=== PATIENT | female | born 1980 | race Hispanic/Latino ===

== ENCOUNTER 2017-07-28 07:17 | Emergency (ER) | payer BC ==
[2017-07-28] MEDS ORDERED: SODIUM CHLORIDE 0.9% 1000ML 1,000 ML IV ONE ×2 (08:01→09:24)
[2017-07-28] MEDS ORDERED: ONDANSETRON HCL 4 MG/2 ML VIAL ONE (08:01)
[2017-07-28 08:08] LABS: BASOPHILS % (AUTO) 1.2 % (0.0-5.0); EOSINOPHILS % (AUTO) 0.3 % (0.0-8.0); HEMATOCRIT 41.6 % (36-48); LYMPHOCYTES % (AUTO) 21.9 % (21.0-51.0); MEAN CORPUSCULAR HEMOGLOBIN 29.9 pg (27.0-33.0); MEAN CORPUSCULAR VOLUME 85.5 fL (79-99); MONOCYTES % (AUTO) 3.3 % (3.0-13.0); NEUTROPHILS % (AUTO) 73.3 % (40.0-77.0); PLATELET COUNT (AUTO) 183 K/uL (130-400); RED BLOOD CELL COUNT(AUTO) 4.87 MIL/uL (4.00-5.50); RED CELL DISTRIBUTION WIDTH 12.9 % (11.0-15.5); WHITE BLOOD COUNT (AUTO) 11.7 K/uL (4.8-10.8)
[2017-07-28 08:31] LABS: APPEARANCE,URINE Clear (CLEAR); BILIRUBIN,URINE Negative (NEGATIVE); COLOR,URINE Yellow (YELLOW); GLUCOSE, URINE (UA) >=1000 mg/dL (NEGATIVE); HCG,QUAL RESULT NEGATIVE (NEGATIVE); KETONES,URINE 40 mg/dL (NEGATIVE); LEUKOCYTE ESTERASE ,URINE Negative (NEGATIVE); NITRATE,URINE Negative (NEGATIVE); OCCULT BLOOD,URINE Nonhemolyzed Trace (NEGATIVE); PROTEIN,URINE Negative (NEGATIVE)
[2017-07-28 08:37] LABS: ALBUMIN 3.5 g/dL (3.5-5.0); BILIRUBIN,TOTAL 0.6 mg/dL (0.2-1.0); CREATININE 0.7 mg/dL (0.5-1.5); POTASSIUM 3.8 mmol/L (3.5-5.1); TOTAL PROTEIN, SERUM 7.3 g/dL (6.0-8.3)
[2017-07-28] MEDS ORDERED: FAMOTIDINE 20MG TAB 20 MG TAB ONE (08:39)
[2017-07-28 08:40] LABS: BACTERIA,URINE Few /HPF (None Seen)
[2017-07-28] MEDS ORDERED: INSULIN HUMULIN R 100 UNIT/ML 3ML ONE (09:25)
== END 2017-07-28 11:23 | disposition home or self-care (01) ==
LOC: EDH 07:17
DX: E86.0 Dehydration (principal); E11.65 Type 2 diabetes mellitus with hyperglycemia; M54.5 Low back pain; R30.0 Dysuria; R06.02 Shortness of breath; Z90.49 Acquired absence of other specified parts of digestive tract; Z98.51 Tubal ligation status; Z98.890 Other specified postprocedural states
CPT/HCPCS: 36415; 80053; 81001; 81025; 82948; 83690; 85025; 93005; 96361; 96374; 96375; 99285; J1815; J2405; J7030 ×2

== ENCOUNTER 2018-09-14 12:57 | Emergency (ER) | payer BC, OTHER | END 2018-09-14 13:44 | disposition home or self-care (01) | LOC: EDH 12:57 | DX: J10.1 Influenza due to other identified influenza virus with other respiratory manifestations (principal); E11.9 Type 2 diabetes mellitus without complications; Z98.51 Tubal ligation status; Z90.49 Acquired absence of other specified parts of digestive tract; Z98.890 Other specified postprocedural states ==

== ENCOUNTER 2020-06-01 18:34 | Emergency (ER) | payer OTHER ==
[2020-06-01 19:01] LABS: APPEARANCE,URINE SL CLOUDY (CLEAR); BILIRUBIN,URINE NEGATIVE (NEGATIVE); COLOR,URINE YELLOW (YELLOW); GLUCOSE, URINE (UA) >=1000 mg/dL (NEGATIVE); KETONES,URINE NEGATIVE (NEGATIVE); LEUKOCYTE ESTERASE ,URINE NEGATIVE (NEGATIVE); NITRATE,URINE POSITIVE (NEGATIVE); OCCULT BLOOD,URINE MODERATE (NEGATIVE); PROTEIN,URINE TRACE mg/dL (NEGATIVE); UROBILINOGEN,URINE 0.2 mg/dL (0.2-1.0)
[2020-06-01 19:04] LABS: HCG,QUAL RESULT NEGATIVE (NEGATIVE)
[2020-06-01 19:13] LABS: BACTERIA,URINE Moderate /HPF (None Seen); MUCUS,URINE Few LPF (None Seen); RBC,URINE 26-50 /HPF (0-1); SQUAMOUS EPITHELIAL CELL,UR Few /HPF (0-2)
[2020-06-01] MEDS ORDERED: KETOROLAC TROMETHAMINE 30MG/ML ONE ×2 (19:20→19:23)
[2020-06-01] MEDS ORDERED: SODIUM CHLORIDE 0.9% 1000ML 1,000 ML IV ONE (19:20)
[2020-06-01] MEDS ORDERED: PHENAZOPYRIDINE HCL 200 MG TABLET ONE (19:23)
[2020-06-01] MEDS ORDERED: CEFTRIAXONE SODIUM 1 GM ONE (19:24)
[2020-06-01 19:44] LABS: BASOPHILS % (AUTO) 0.3 % (0.0-5.0); EOSINOPHILS % (AUTO) 0.4 % (0.0-8.0); HEMATOCRIT 43.1 % (36-48); LYMPHOCYTES % (AUTO) 22.5 % (21.0-51.0); MEAN CORPUSCULAR HEMOGLOBIN 29.9 pg (27.0-33.0); MEAN CORPUSCULAR HGB CONC 33.9 g/dL (32.0-36.0); MEAN CORPUSCULAR VOLUME 88.3 fL (79-99); MONOCYTES % (AUTO) 6.7 % (3.0-13.0); NEUTROPHILS % (AUTO) 69.5 % (40.0-77.0); PLATELET COUNT (AUTO) 233 K/uL (130-400); RED BLOOD CELL COUNT(AUTO) 4.88 MIL/uL (4.00-5.50); WHITE BLOOD COUNT (AUTO) 12.1 K/uL (4.8-10.8)
[2020-06-01 19:48] LABS: CREATININE 0.9 mg/dL (0.5-1.5); POTASSIUM 3.6 mmol/L (3.5-5.1)
[2020-06-01 19:52] LABS: ALBUMIN 3.2 g/dL (3.5-5.0); BILIRUBIN,TOTAL 0.3 mg/dL (0.2-1.0); TOTAL PROTEIN, SERUM 7.2 g/dL (6.0-8.3)
== END 2020-06-01 20:31 | disposition home or self-care (01) ==
LOC: EDH 18:34
DX: N39.0 Urinary tract infection, site not specified (principal); E11.9 Type 2 diabetes mellitus without complications
CPT/HCPCS: 36415; 74176; 80053; 81001; 81025; 83690; 85025; 87077; 87088; 87186; 96361; 96374; 96375; 99284; J0696; J1885 ×2; J7030

== ENCOUNTER 2020-07-06 02:06 | Inpatient (IN) | payer OTHER ==
[~2020-07-06] VITALS: Ht 160 cm; Wt 113.7 kg
[2020-07-06 02:42] LABS: BASOPHILS % (AUTO) 0.3 % (0.0-5.0); HEMATOCRIT 41.4 % (36-48); LYMPHOCYTES % (AUTO) 17.7 % (21.0-51.0); MEAN CORPUSCULAR HEMOGLOBIN 29.1 pg (27.0-33.0); MONOCYTES % (AUTO) 5.7 % (3.0-13.0); NEUTROPHILS % (AUTO) 75.7 % (40.0-77.0); PLATELET COUNT (AUTO) 154 K/uL (130-400); RED BLOOD CELL COUNT(AUTO) 4.99 MIL/uL (4.00-5.50); WHITE BLOOD COUNT (AUTO) 3.3 K/uL (4.8-10.8)
[2020-07-06] MEDS ORDERED: METOCLOPRAMIDE 10 MG/2 ML VIAL ONE (02:48)
[2020-07-06] MEDS ORDERED: CEFTRIAXONE SODIUM 1 GM ONE ×2 (02:49→15:31)
[2020-07-06] MEDS ORDERED: DEXAMETHASONE SOD PHOSPHATE 10MG/ML 1ML VIAL ONE (02:49)
[2020-07-06] MEDS ORDERED: AZITHROMYCIN 500MG+NS 250ML 250 ML IV ONE (02:49)
[2020-07-06] MEDS ORDERED: ONDANSETRON HCL 4 MG/2 ML VIAL ONE (02:49)
[2020-07-06 02:51] LABS: ABG BASE EXCESS -3.8 mmol/L (-2.0-3.0); ABG HCO3 19.1 mmol/L (21.0-28.0); ABG OXYGEN SATURATION 87.8 % (95.0-99.0); ABG PCO2 29 mmHg (32-45)
[2020-07-06 02:54] LABS: INR 0.93 (0.85-1.15)
[2020-07-06 02:56] LABS: PARTIAL THROMBOPLASTIN TIME 30.2 SEC (26.3-35.5)
[2020-07-06 02:59] LABS: CREATININE 0.7 mg/dL (0.5-1.5); POTASSIUM 3.3 mmol/L (3.5-5.1)
[2020-07-06 03:04] LABS: ALBUMIN 2.6 g/dL (3.5-5.0); BILIRUBIN,TOTAL 0.4 mg/dL (0.2-1.0); TOTAL PROTEIN, SERUM 7.4 g/dL (6.0-8.3)
[2020-07-06] MEDS ORDERED: IBUPROFEN 600 MG TABLET ONE (03:42)
[2020-07-06] MEDS ORDERED: LIDOCAINE HCL-MPF 1% 2ML VIAL IV PRN (04:15)
[2020-07-06] MEDS ORDERED: ALBUTEROL INHALER 90MCG/INH IH PRN (04:15)
[2020-07-06] MEDS ORDERED: GLUCAGON 1MG KIT 1 MG ML IM PRN (04:15)
[2020-07-06] MEDS ORDERED: POTASSIUM CHLORIDE 20 MEQ ERTAB PO PRN (04:15)
[2020-07-06] MEDS ORDERED: POTASSIUM CHLORIDE 20MEQ/100ML 100 ML IV PRN (04:15)
[2020-07-06] MEDS: AZITHROMYCIN 500MG+NS 250ML 250 ML IV SCH (04:15)
[2020-07-06] MEDS ORDERED: POTASSIUM CHLORIDE 10% ELIXIR 20 MEQ/15 ML UDCUP PO PRN (04:15)
[2020-07-06] MEDS ORDERED: ERGOCALCIFEROL (VITAMIN D2) 50,000 UNIT CAPSULE PO ONE ×2 (04:15→09:15)
[2020-07-06] MEDS ORDERED: DEXTROSE 50%-WATER 50 ML DISP.SYRIN IV PRN (04:15)
[2020-07-06] MEDS ORDERED: ACETAMINOPHEN 325 MG TAB PO PRN ×2 (05:00)
[2020-07-06] MEDS ORDERED: ONDANSETRON HCL 4 MG/2 ML VIAL IV PRN (05:00)
[2020-07-06] MEDS: FAMOTIDINE/PF 20 MG/2 ML VIAL IV SCH (09:00)
[2020-07-06] MEDS: ACETYLCYSTEINE 600 MG CAPSULE PO SCH ×2 (09:00→21:00)
[2020-07-06] MEDS ORDERED: ASCORBIC ACID 500 MG TAB PO SCH (09:00)
[2020-07-06] MEDS: ZINC SULFATE 220 CAPSULE PO SCH (09:00)
[2020-07-06] MEDS: DEXAMETHASONE SOD PHOSPHATE 4 MG/ML 1ML VIAL IVP SCH (09:00)
[2020-07-06] MEDS ORDERED: ASCORBIC ACID 500 MG TAB ONE (09:07)
[2020-07-06] MEDS ORDERED: ZINC SULFATE 220 CAPSULE ONE (09:07)
[2020-07-06] MEDS ORDERED: ACETYLCYSTEINE 600 MG CAPSULE ONE (09:07)
[2020-07-06] MEDS ORDERED: FAMOTIDINE/PF 20 MG/2 ML VIAL IV ONE (09:08)
[2020-07-06] MEDS: CEFTRIAXONE SODIUM 1 GM IVP SCH (16:15)
[2020-07-06] MEDS ORDERED: ENOXAPARIN SODIUM 60 MG/0.6 ML SQ SCH (21:00)
[2020-07-07] MEDS ORDERED: ONDANSETRON HCL 4 MG/2 ML VIAL ONE (00:11)
[2020-07-07] MEDS ORDERED: ACETAMINOPHEN 325 MG TAB ONE (00:18)
[2020-07-07] MEDS ORDERED: ENOXAPARIN SODIUM 60 MG/0.6 ML SQ ONE ×2 (01:00→07:50)
[2020-07-07] MEDS ORDERED: AZITHROMYCIN 500MG+NS 250ML 250 ML IV ONE (03:07)
[2020-07-07] MEDS ORDERED: CEFTRIAXONE SODIUM 1 GM ONE (03:07)
[2020-07-07] MEDS: AZITHROMYCIN 500MG+NS 250ML 250 ML IV SCH (04:15)
[2020-07-07] MEDS: CEFTRIAXONE SODIUM 1 GM IVP SCH ×3 (04:15→17:34)
[2020-07-07 04:29] LABS: BASOPHILS % (AUTO) 0.2 % (0.0-5.0); HEMATOCRIT 40.3 % (36-48); LYMPHOCYTES % (AUTO) 14.9 % (21.0-51.0); MEAN CORPUSCULAR HEMOGLOBIN 28.6 pg (27.0-33.0); MEAN CORPUSCULAR HGB CONC 34.2 g/dL (32.0-36.0); MEAN CORPUSCULAR VOLUME 83.4 fL (79-99); MONOCYTES % (AUTO) 5.4 % (3.0-13.0); NEUTROPHILS % (AUTO) 78.9 % (40.0-77.0); PLATELET COUNT (AUTO) 168 K/uL (130-400); RED BLOOD CELL COUNT(AUTO) 4.83 MIL/uL (4.00-5.50); WHITE BLOOD COUNT (AUTO) 5.2 K/uL (4.8-10.8)
[2020-07-07 04:53] LABS: ALANINE AMINOTRANSFERASE 19 U/L (12-78); ALBUMIN 2.2 g/dL (3.5-5.0); ASPARTATE AMINOTRANSFERASE 24 U/L (10-37); BILIRUBIN,TOTAL 0.3 mg/dL (0.2-1.0); CARBON DIOXIDE 19 mmol/L (21-32); CHLORIDE 100 mmol/L (101-111); CREATININE 0.7 mg/dL (0.5-1.5); GLOMERULAR FILTR. RATE CALC 100 mL/min (>60); GLUCOSE,RANDOM 194 mg/dL (70-105); LACTATE DEHYDROGENASE 352 U/L (81-234); POTASSIUM 3.2 mmol/L (3.5-5.1); SODIUM SERUM 137 mmol/L (136-145); TOTAL PROTEIN, SERUM 6.9 g/dL (6.0-8.3); UREA NITROGEN, BLOOD 15 mg/dL (7-18)
[2020-07-07] MEDS ORDERED: DEXAMETHASONE SOD PHOSPHATE 10MG/ML 1ML VIAL ONE (07:50)
[2020-07-07] MEDS ORDERED: ASCORBIC ACID 500 MG TAB ONE (07:51)
[2020-07-07] MEDS ORDERED: POTASSIUM CHLORIDE 20 MEQ ERTAB PO ONE (07:51)
[2020-07-07] MEDS ORDERED: ACETYLCYSTEINE 600 MG CAPSULE ONE (07:52)
[2020-07-07] MEDS ORDERED: ZINC SULFATE 220 CAPSULE ONE (07:52)
[2020-07-07] MEDS ORDERED: FAMOTIDINE/PF 20 MG/2 ML VIAL IV ONE (07:52)
[2020-07-07] MEDS: ACETYLCYSTEINE 600 MG CAPSULE PO SCH ×2 (09:00→22:17)
[2020-07-07] MEDS: ASCORBIC ACID 500 MG TAB PO SCH (09:00)
[2020-07-07] MEDS ORDERED: ZINC SULFATE 220 CAPSULE PO SCH (09:00)
[2020-07-07] MEDS: FAMOTIDINE/PF 20 MG/2 ML VIAL IV SCH ×2 (09:00→22:12)
[2020-07-07] MEDS: DEXAMETHASONE SOD PHOSPHATE 4 MG/ML 1ML VIAL IVP SCH (09:00)
[2020-07-07] MEDS: ZINC SULFATE 220 CAPSULE PO SCH (09:00)
[2020-07-07 09:30] VITALS: BP 107/69
[2020-07-07] MEDS: ONDANSETRON HCL 4 MG/2 ML VIAL IVP PRN ×2 (10:41→22:19)
[2020-07-07 12:00] VITALS: BP 126/77
[2020-07-07] MEDS ORDERED: REMDESIVIR (EUA) 520 200 MG in SODIUM CHLORIDE 0.9% 250 ML IV ONE (14:00)
[2020-07-07] MEDS ORDERED: COMPOUND IV REFRIGERATED 1 EACH IVSOLN MISC PRN (14:00)
[2020-07-07] MEDS ORDERED: ENOXAPARIN SODIUM 120 MG/0.8ML SQ ONE ×2 (14:15→18:40)
[2020-07-07 16:00] VITALS: BP 115/73
[2020-07-07 19:40] VITALS: BP 110/63
[2020-07-07 23:34] VITALS: BP 103/64
[2020-07-08 03:54] VITALS: BP 120/70
[2020-07-08 04:15] LABS: ABG BASE EXCESS -4.3 mmol/L (-2.0-3.0); ABG HCO3 18.4 mmol/L (21.0-28.0); ABG OXYGEN SATURATION 99.7 % (95.0-99.0); ABG PCO2 29 mmHg (32-45)
[2020-07-08] MEDS: AZITHROMYCIN 500MG+NS 250ML 250 ML IV SCH (04:15)
[2020-07-08 05:01] LABS: BASOPHILS % (AUTO) 0.3 % (0.0-5.0); LYMPHOCYTES % (AUTO) 26.3 % (21.0-51.0); MEAN CORPUSCULAR HEMOGLOBIN 28.6 pg (27.0-33.0); MEAN CORPUSCULAR HGB CONC 33.8 g/dL (32.0-36.0); MEAN CORPUSCULAR VOLUME 84.6 fL (79-99); MONOCYTES % (AUTO) 9.8 % (3.0-13.0); NEUTROPHILS % (AUTO) 62.9 % (40.0-77.0); PLATELET COUNT (AUTO) 195 K/uL (130-400); RED BLOOD CELL COUNT(AUTO) 4.61 MIL/uL (4.00-5.50); RED CELL DISTRIBUTION WIDTH 12.1 % (11.0-15.5)
[2020-07-08] MEDS: CEFTRIAXONE SODIUM 1 GM IVP SCH ×2 (05:07→16:19)
[2020-07-08 05:13] LABS: BILIRUBIN,TOTAL 0.3 mg/dL (0.2-1.0); CREATININE 0.7 mg/dL (0.5-1.5); CRP QUANTITATIVE 111.9 mg/L (0.00-9.0); POTASSIUM 3.8 mmol/L (3.5-5.1); TOTAL PROTEIN, SERUM 6.7 g/dL (6.0-8.3)
[2020-07-08] MEDS ORDERED: PHARMACY COMMUNICATION MISC SCH (06:00)
[2020-07-08 07:00] VITALS: BP 90/50
[2020-07-08 07:42] LABS: LYMPHOCYTES % (MANUAL) 22 % (22-44); MONOCYTES % (MANUAL) 8 % (2-9); SEGMENTED NEUTROPHILS % 70 % (40-70)
[2020-07-08 07:43] LABS: MAN.DIFF COMMENT-IMPRESSION MANUAL DIFFERENTIAL; PLATELET MORPHOLOGY COMMENT ADEQUATE
[2020-07-08] MEDS: FAMOTIDINE/PF 20 MG/2 ML VIAL IV SCH (08:14)
[2020-07-08] MEDS: ACETYLCYSTEINE 600 MG CAPSULE PO SCH ×2 (08:23→21:04)
[2020-07-08] MEDS: ASCORBIC ACID 500 MG TAB PO SCH (08:23)
[2020-07-08] MEDS ORDERED: NON-FORMULARY MEDICATION 1 EACH PO SCH (09:00)
[2020-07-08] MEDS: DEXAMETHASONE SOD PHOSPHATE 4 MG/ML 1ML VIAL IVP SCH (09:46)
[2020-07-08] MEDS: ZINC SULFATE 220 CAPSULE PO SCH (09:47)
[2020-07-08 11:00] VITALS: BP 118/78
[2020-07-08] MEDS: REMDESIVIR (EUA) 520 100 MG in SODIUM CHLORIDE 0.9% 250 ML IV SCH (14:00)
[2020-07-08 19:54] VITALS: BP 121/70
[2020-07-08] MEDS: FAMOTIDINE 20MG TAB 20 MG TAB PO SCH (21:05)
[2020-07-08] MEDS: ENOXAPARIN SODIUM 60 MG/0.6 ML SQ SCH (21:06)
[2020-07-08 23:44] VITALS: BP 131/73
[2020-07-09 03:23] VITALS: BP 98/51
[2020-07-09 05:08] LABS: BASOPHILS % (AUTO) 0.3 % (0.0-5.0); HEMATOCRIT 38.7 % (36-48); LYMPHOCYTES % (AUTO) 25.1 % (21.0-51.0); MEAN CORPUSCULAR HEMOGLOBIN 28.7 pg (27.0-33.0); MEAN CORPUSCULAR HGB CONC 33.9 g/dL (32.0-36.0); MEAN CORPUSCULAR VOLUME 84.9 fL (79-99); MONOCYTES % (AUTO) 8.8 % (3.0-13.0); NEUTROPHILS % (AUTO) 64.8 % (40.0-77.0); PLATELET COUNT (AUTO) 212 K/uL (130-400); RED BLOOD CELL COUNT(AUTO) 4.56 MIL/uL (4.00-5.50); RED CELL DISTRIBUTION WIDTH 12.1 % (11.0-15.5)
[2020-07-09 05:16] LABS: ALBUMIN 2.1 g/dL (3.5-5.0); BILIRUBIN,TOTAL 0.3 mg/dL (0.2-1.0); CREATININE 0.6 mg/dL (0.5-1.5); CRP QUANTITATIVE 53.2 mg/L (0.00-9.0); POTASSIUM 3.8 mmol/L (3.5-5.1); TOTAL PROTEIN, SERUM 6.5 g/dL (6.0-8.3)
[2020-07-09 08:51] VITALS: BP 100/57
[2020-07-09 08:53] VITALS: BP 136/78
[2020-07-09] MEDS: ZINC SULFATE 220 CAPSULE PO SCH (09:45)
[2020-07-09] MEDS: ASCORBIC ACID 500 MG TAB PO SCH (09:45)
[2020-07-09] MEDS: CEFTRIAXONE SODIUM 1 GM IVP SCH (09:45)
[2020-07-09] MEDS: FAMOTIDINE 20MG TAB 20 MG TAB PO SCH ×2 (09:45→21:52)
[2020-07-09] MEDS: DEXAMETHASONE SOD PHOSPHATE 4 MG/ML 1ML VIAL IVP SCH (09:45)
[2020-07-09] MEDS: ENOXAPARIN SODIUM 60 MG/0.6 ML SQ SCH ×2 (09:46→21:56)
[2020-07-09] MEDS: INSULIN HUMULIN R 100 UNIT/ML 3ML SQ SCH ×2 (09:49→13:08)
[2020-07-09 12:30] VITALS: BP 109/70
[2020-07-09] MEDS: REMDESIVIR (EUA) 520 100 MG in SODIUM CHLORIDE 0.9% 250 ML IV SCH (13:57)
[2020-07-09 16:22] VITALS: BP 118/65
[2020-07-09 20:00] VITALS: BP 103/59
[2020-07-09] MEDS: INSULIN GLARGINE 100 UNITS/ML 10 ML VIAL SQ SCH (22:00)
[2020-07-10] VITALS: BP 107/60
[2020-07-10 04:00] VITALS: BP 120/67
[2020-07-10 04:30] LABS: BASOPHILS % (AUTO) 0.3 % (0.0-5.0); EOSINOPHILS % (AUTO) 0.3 % (0.0-8.0); HEMATOCRIT 38.7 % (36-48); LYMPHOCYTES % (AUTO) 23.2 % (21.0-51.0); MEAN CORPUSCULAR HEMOGLOBIN 28.6 pg (27.0-33.0); MEAN CORPUSCULAR HGB CONC 34.1 g/dL (32.0-36.0); MEAN CORPUSCULAR VOLUME 83.8 fL (79-99); MONOCYTES % (AUTO) 8.5 % (3.0-13.0); NEUTROPHILS % (AUTO) 66.4 % (40.0-77.0); PLATELET COUNT (AUTO) 239 K/uL (130-400); RED BLOOD CELL COUNT(AUTO) 4.62 MIL/uL (4.00-5.50); RED CELL DISTRIBUTION WIDTH 12.1 % (11.0-15.5); WHITE BLOOD COUNT (AUTO) 3.9 K/uL (4.8-10.8)
[2020-07-10 04:49] LABS: ALANINE AMINOTRANSFERASE 19 U/L (12-78); ALBUMIN 2.1 g/dL (3.5-5.0); ASPARTATE AMINOTRANSFERASE 19 U/L (10-37); BILIRUBIN,TOTAL 0.5 mg/dL (0.2-1.0); CARBON DIOXIDE 23 mmol/L (21-32); CHLORIDE 106 mmol/L (101-111); CREATININE 0.6 mg/dL (0.5-1.5); GLOMERULAR FILTR. RATE CALC 119 mL/min (>60); GLUCOSE,RANDOM 295 mg/dL (70-105); LACTATE DEHYDROGENASE 320 U/L (81-234); POTASSIUM 3.4 mmol/L (3.5-5.1); SODIUM SERUM 141 mmol/L (136-145); TOTAL PROTEIN, SERUM 6.4 g/dL (6.0-8.3); UREA NITROGEN, BLOOD 22 mg/dL (7-18)
[2020-07-10 04:53] LABS: HEMOGLOBIN A1C 8.3 % (4.0-6.0)
[2020-07-10] MEDS: INSULIN HUMULIN R 100 UNIT/ML 3ML SQ SCH ×7 (07:30→21:17)
[2020-07-10] MEDS: INSULIN GLARGINE 100 UNITS/ML 10 ML VIAL SQ SCH ×2 (07:53→21:08)
[2020-07-10 08:30] VITALS: BP 99/61
[2020-07-10] MEDS: DEXAMETHASONE SOD PHOSPHATE 4 MG/ML 1ML VIAL IVP SCH (09:30)
[2020-07-10] MEDS: ASCORBIC ACID 500 MG TAB PO SCH (09:31)
[2020-07-10] MEDS: ENOXAPARIN SODIUM 60 MG/0.6 ML SQ SCH (09:31)
[2020-07-10] MEDS: FAMOTIDINE 20MG TAB 20 MG TAB PO SCH ×2 (09:31→21:06)
[2020-07-10] MEDS: ZINC SULFATE 220 CAPSULE PO SCH (09:31)
[2020-07-10 11:50] VITALS: BP 132/75
[2020-07-10] MEDS: REMDESIVIR (EUA) 520 100 MG in SODIUM CHLORIDE 0.9% 250 ML IV SCH (13:45)
[2020-07-10 16:30] VITALS: BP 115/73
[2020-07-10] MEDS: CEFTRIAXONE SODIUM 1 GM IVP SCH (17:04)
[2020-07-10 20:00] VITALS: BP 123/69
[2020-07-10] MEDS: ENOXAPARIN SODIUM 40 MG/0.4 ML SYRINGE SQ SCH (21:14)
[2020-07-11 00:36] VITALS: BP 93/44
[2020-07-11] MEDS: CEFTRIAXONE SODIUM 1 GM IVP SCH (05:02)
[2020-07-11 05:07] LABS: BASOPHILS % (AUTO) 0.2 % (0.0-5.0); EOSINOPHILS % (AUTO) 0.9 % (0.0-8.0); LYMPHOCYTES % (AUTO) 29.8 % (21.0-51.0); MEAN CORPUSCULAR HEMOGLOBIN 28.9 pg (27.0-33.0); MEAN CORPUSCULAR HGB CONC 34.2 g/dL (32.0-36.0); MEAN CORPUSCULAR VOLUME 84.4 fL (79-99); MONOCYTES % (AUTO) 10.4 % (3.0-13.0); NEUTROPHILS % (AUTO) 56.3 % (40.0-77.0); PLATELET COUNT (AUTO) 242 K/uL (130-400); RED CELL DISTRIBUTION WIDTH 11.9 % (11.0-15.5); WHITE BLOOD COUNT (AUTO) 4.2 K/uL (4.8-10.8)
[2020-07-11 05:21] LABS: ALBUMIN 2.1 g/dL (3.5-5.0); BILIRUBIN,TOTAL 0.2 mg/dL (0.2-1.0); CREATININE 0.5 mg/dL (0.5-1.5); CRP QUANTITATIVE 32.3 mg/L (0.00-9.0); TOTAL PROTEIN, SERUM 6.3 g/dL (6.0-8.3)
[2020-07-11] MEDS: INSULIN HUMULIN R 100 UNIT/ML 3ML SQ SCH ×7 (07:30→22:22)
[2020-07-11] MEDS: INSULIN GLARGINE 100 UNITS/ML 10 ML VIAL SQ SCH ×2 (08:33→21:06)
[2020-07-11 09:00] VITALS: BP 90/58
[2020-07-11] MEDS: POTASSIUM CHLORIDE 20 MEQ ERTAB PO SCH (09:39)
[2020-07-11] MEDS: DEXAMETHASONE SOD PHOSPHATE 4 MG/ML 1ML VIAL IVP SCH (09:39)
[2020-07-11] MEDS: ASCORBIC ACID 500 MG TAB PO SCH (09:39)
[2020-07-11] MEDS: ZINC SULFATE 220 CAPSULE PO SCH (09:39)
[2020-07-11] MEDS: ENOXAPARIN SODIUM 40 MG/0.4 ML SYRINGE SQ SCH ×2 (09:40→21:03)
[2020-07-11 11:00] VITALS: BP 100/66
[2020-07-11] MEDS: REMDESIVIR (EUA) 520 100 MG in SODIUM CHLORIDE 0.9% 250 ML IV SCH (13:00)
[2020-07-11 16:00] VITALS: BP 118/82
[2020-07-11 16:33] LABS: CREATININE 0.7 mg/dL (0.5-1.5); POTASSIUM 4.2 mmol/L (3.5-5.1)
[2020-07-11 19:31] VITALS: BP 127/69
[2020-07-11] MEDS: NYSTATIN 30 GM CREAM.GM. TP SCH (21:12)
[2020-07-11 23:55] VITALS: BP 140/74
[2020-07-12 03:06] VITALS: BP 112/74
[2020-07-12 05:55] LABS: BASOPHILS % (AUTO) 0.2 % (0.0-5.0); EOSINOPHILS % (AUTO) 1.1 % (0.0-8.0); HEMATOCRIT 38.7 % (36-48); LYMPHOCYTES % (AUTO) 26.1 % (21.0-51.0); MEAN CORPUSCULAR HEMOGLOBIN 28.7 pg (27.0-33.0); MEAN CORPUSCULAR HGB CONC 34.1 g/dL (32.0-36.0); MEAN CORPUSCULAR VOLUME 84.1 fL (79-99); MONOCYTES % (AUTO) 10.9 % (3.0-13.0); NEUTROPHILS % (AUTO) 57.1 % (40.0-77.0); PLATELET COUNT (AUTO) 259 K/uL (130-400); RED CELL DISTRIBUTION WIDTH 11.9 % (11.0-15.5); WHITE BLOOD COUNT (AUTO) 5.3 K/uL (4.8-10.8)
[2020-07-12 06:17] LABS: ALBUMIN 2.1 g/dL (3.5-5.0); BILIRUBIN,TOTAL 0.2 mg/dL (0.2-1.0); CREATININE 0.5 mg/dL (0.5-1.5); CRP QUANTITATIVE 25.7 mg/L (0.00-9.0); POTASSIUM 3.3 mmol/L (3.5-5.1); TOTAL PROTEIN, SERUM 6.2 g/dL (6.0-8.3)
[2020-07-12] MEDS: INSULIN HUMULIN R 100 UNIT/ML 3ML SQ SCH ×7 (06:37→20:32)
[2020-07-12 07:00] VITALS: BP 106/68
[2020-07-12] MEDS: INSULIN GLARGINE 100 UNITS/ML 10 ML VIAL SQ SCH ×2 (07:40→20:33)
[2020-07-12] MEDS: ZINC SULFATE 220 CAPSULE PO SCH (08:24)
[2020-07-12] MEDS: ASCORBIC ACID 500 MG TAB PO SCH (08:24)
[2020-07-12] MEDS: DEXAMETHASONE SOD PHOSPHATE 4 MG/ML 1ML VIAL IVP SCH (08:25)
[2020-07-12] MEDS: ENOXAPARIN SODIUM 40 MG/0.4 ML SYRINGE SQ SCH ×2 (08:25→20:35)
[2020-07-12] MEDS: NYSTATIN 30 GM CREAM.GM. TP SCH ×2 (08:26→21:00)
[2020-07-12] MEDS: POTASSIUM CHLORIDE 20 MEQ ERTAB PO SCH ×2 (08:27→20:38)
[2020-07-12 11:00] VITALS: BP 93/68
[2020-07-12 15:00] VITALS: BP 102/72
[2020-07-12] MEDS ORDERED: INSULIN HUMULIN R 100 UNIT/ML 3ML SQ STA (15:26)
[2020-07-12 20:28] VITALS: BP 116/50
[2020-07-13] VITALS (7 sets, daily range): BP systolic 80–126; BP diastolic 54–79
[2020-07-13] MEDS: INSULIN HUMULIN R 100 UNIT/ML 3ML SQ SCH ×7 (07:30→22:22)
[2020-07-13] MEDS: ZINC SULFATE 220 CAPSULE PO SCH (07:59)
[2020-07-13] MEDS: ASCORBIC ACID 500 MG TAB PO SCH (07:59)
[2020-07-13] MEDS: DEXAMETHASONE 4 MG TAB PO SCH (08:00)
[2020-07-13] MEDS: ENOXAPARIN SODIUM 40 MG/0.4 ML SYRINGE SQ SCH (08:02)
[2020-07-13] MEDS: POTASSIUM CHLORIDE 20 MEQ ERTAB PO SCH ×2 (08:02→22:20)
[2020-07-13] MEDS: INSULIN GLARGINE 100 UNITS/ML 10 ML VIAL SQ SCH ×2 (08:04→22:21)
[2020-07-13] MEDS: NYSTATIN 30 GM CREAM.GM. TP SCH ×2 (09:00→21:00)
[2020-07-14 03:00] VITALS: BP 94/69
[2020-07-14 05:57] LABS: BASOPHILS % (AUTO) 0.5 % (0.0-5.0); HEMATOCRIT 41.1 % (36-48); LYMPHOCYTES % (AUTO) 24.1 % (21.0-51.0); MEAN CORPUSCULAR HEMOGLOBIN 28.8 pg (27.0-33.0); MEAN CORPUSCULAR HGB CONC 33.8 g/dL (32.0-36.0); MEAN CORPUSCULAR VOLUME 85.1 fL (79-99); MONOCYTES % (AUTO) 11.5 % (3.0-13.0); NEUTROPHILS % (AUTO) 58.6 % (40.0-77.0); PLATELET COUNT (AUTO) 267 K/uL (130-400); RED BLOOD CELL COUNT(AUTO) 4.83 MIL/uL (4.00-5.50); RED CELL DISTRIBUTION WIDTH 11.9 % (11.0-15.5); WHITE BLOOD COUNT (AUTO) 6.3 K/uL (4.8-10.8)
[2020-07-14 06:17] LABS: ALBUMIN 2.3 g/dL (3.5-5.0); BILIRUBIN,TOTAL 0.4 mg/dL (0.2-1.0); CREATININE 0.6 mg/dL (0.5-1.5); CRP QUANTITATIVE 13.3 mg/L (0.00-9.0); MAGNESIUM 1.9 mg/dL (1.80-2.40); POTASSIUM 4.6 mmol/L (3.5-5.1); TOTAL PROTEIN, SERUM 6.6 g/dL (6.0-8.3)
[2020-07-14 07:00] VITALS: BP 80/49
[2020-07-14] MEDS: INSULIN GLARGINE 100 UNITS/ML 10 ML VIAL SQ SCH ×2 (08:07→22:09)
[2020-07-14] MEDS: INSULIN HUMULIN R 100 UNIT/ML 3ML SQ SCH ×7 (08:09→22:08)
[2020-07-14] MEDS: ZINC SULFATE 220 CAPSULE PO SCH (09:56)
[2020-07-14] MEDS: ASCORBIC ACID 500 MG TAB PO SCH (09:56)
[2020-07-14] MEDS: POTASSIUM CHLORIDE 20 MEQ ERTAB PO SCH ×2 (09:56→22:33)
[2020-07-14] MEDS: ENOXAPARIN SODIUM 40 MG/0.4 ML SYRINGE SQ SCH (09:58)
[2020-07-14] MEDS: DEXAMETHASONE 4 MG TAB PO SCH (09:58)
[2020-07-14] MEDS: NYSTATIN 30 GM CREAM.GM. TP SCH ×2 (10:04→21:00)
[2020-07-14 11:00] VITALS: BP 89/57
[2020-07-14 16:30] VITALS: BP 100/65
[2020-07-14 19:25] VITALS: BP 109/60
[2020-07-14 23:13] VITALS: BP 101/62
[2020-07-15 03:58] VITALS: BP 89/55
[2020-07-15 06:27] LABS: BASOPHILS % (AUTO) 0.3 % (0.0-5.0); EOSINOPHILS % (AUTO) 0.3 % (0.0-8.0); HEMATOCRIT 42.3 % (36-48); LYMPHOCYTES % (AUTO) 27.2 % (21.0-51.0); MEAN CORPUSCULAR HEMOGLOBIN 28.9 pg (27.0-33.0); MEAN CORPUSCULAR HGB CONC 33.3 g/dL (32.0-36.0); MEAN CORPUSCULAR VOLUME 86.7 fL (79-99); MONOCYTES % (AUTO) 10.8 % (3.0-13.0); NEUTROPHILS % (AUTO) 57.8 % (40.0-77.0); PLATELET COUNT (AUTO) 271 K/uL (130-400); RED BLOOD CELL COUNT(AUTO) 4.88 MIL/uL (4.00-5.50); RED CELL DISTRIBUTION WIDTH 11.9 % (11.0-15.5); WHITE BLOOD COUNT (AUTO) 6.7 K/uL (4.8-10.8)
[2020-07-15 06:47] LABS: ALBUMIN 2.5 g/dL (3.5-5.0); BILIRUBIN,TOTAL 0.4 mg/dL (0.2-1.0); CREATININE 0.6 mg/dL (0.5-1.5); POTASSIUM 4.3 mmol/L (3.5-5.1)
[2020-07-15] MEDS: INSULIN HUMULIN R 100 UNIT/ML 3ML SQ SCH ×4 (07:30→12:28)
[2020-07-15] MEDS: INSULIN GLARGINE 100 UNITS/ML 10 ML VIAL SQ SCH (07:30)
[2020-07-15 08:30] VITALS: BP 100/57
[2020-07-15] MEDS: ENOXAPARIN SODIUM 40 MG/0.4 ML SYRINGE SQ SCH (08:36)
[2020-07-15] MEDS: DEXAMETHASONE 4 MG TAB PO SCH (08:37)
[2020-07-15] MEDS: ZINC SULFATE 220 CAPSULE PO SCH (08:37)
[2020-07-15] MEDS: POTASSIUM CHLORIDE 20 MEQ ERTAB PO SCH (08:37)
[2020-07-15] MEDS: ASCORBIC ACID 500 MG TAB PO SCH (08:37)
[2020-07-15] MEDS: NYSTATIN 30 GM CREAM.GM. TP SCH (09:00)
[2020-07-15] MEDS ORDERED: INSLAN SQ (11:02)
[2020-07-15] MEDS ORDERED: METH4TAB3 PO (11:03)
[2020-07-15 12:51] VITALS: BP 94/66
== END 2020-07-15 14:00 | disposition home or self-care (01) | DRG 871 ==
LOC: EDH 02:06 → EDHIP 04:53 → 2AH 07-07 09:03
PROVIDERS: ADMIT Internal Medicine; ATTEND Internal Medicine
PROC: XW13325 Transfusion of Convalescent Plasma (Nonautologous) into Peripheral Vein, Percutaneous Approach, New Technology Group 5 (ICD-10-PCS; 2020-07-08)
PROC: XW033E5 Introduction of Remdesivir Anti-infective into Peripheral Vein, Percutaneous Approach, New Technology Group 5 (ICD-10-PCS; principal; 2020-07-11)
DX: A41.89 Other specified sepsis (principal); U07.1 COVID-19; J12.89 Other viral pneumonia; J96.01 Acute respiratory failure with hypoxia; Z68.42 Body mass index [BMI] 45.0-49.9, adult; E66.01 Morbid (severe) obesity due to excess calories; E11.65 Type 2 diabetes mellitus with hyperglycemia; K21.9 Gastro-esophageal reflux disease without esophagitis; Z83.3 Family history of diabetes mellitus; E87.6 Hypokalemia; Z98.51 Tubal ligation status; Z98.891 History of uterine scar from previous surgery
CPT/HCPCS: 36415; 36430; 36600; 70450; 71045; 80048; 80053; 82728; 82803; 82948; 83036; 83605; 83615; 83735; 84145; 84484; 85025; 85378; 85610; 85730; 86140; 86850; 86900; 86901; 86927; 87040; 87426; 87804; 93005; 93970; G0378; J0456; J0696; J1100; J1650; J1815; J2405; J2765; J3480; J3490; J7050; J8540

== ENCOUNTER 2021-09-16 05:51 | Emergency (ER) | payer OTHER ==
[~2021-09-16] VITALS: Ht 160 cm; Wt 127.0 kg
[~2021-09-16 05:51] MED LIST: INSLAN SQ; METH4TAB3 PO
[2021-09-16 06:12] LABS: APPEARANCE,URINE Clear (CLEAR); BILIRUBIN,URINE Negative (NEGATIVE); COLOR,URINE Yellow (YELLOW); GLUCOSE, URINE (UA) >=1000 mg/dL (NEGATIVE); KETONES,URINE 15 mg/dL (NEGATIVE); LEUKOCYTE ESTERASE ,URINE Trace (NEGATIVE); NITRATE,URINE Negative (NEGATIVE); OCCULT BLOOD,URINE Nonhemolyzed Trace (NEGATIVE); PROTEIN,URINE Trace mg/dL (NEGATIVE)
[2021-09-16 06:13] LABS: HCG,QUAL RESULT NEGATIVE (NEGATIVE)
[2021-09-16 06:20] LABS: AMPHET/METH SCREEN,URINE NEGATIVE (NEGATIVE); BARBITURATE SCREEN, URINE NEGATIVE (NEGATIVE); BENZODIAZEPINES SCREEN,URINE NEGATIVE (NEGATIVE); CANNABINOID SCREEN,URINE NEGATIVE (NEGATIVE); COCAINE SCREEN,URINE NEGATIVE (NEGATIVE); OPIATE SCREEN,URINE NEGATIVE (NEGATIVE); PHENCYCLIDINE SCREEN,URINE NEGATIVE (NEGATIVE)
[2021-09-16] MEDS ORDERED: LACTATED RINGERS 1000ML 1,000 ML IV ONE (06:23)
[2021-09-16] MEDS ORDERED: PANTOPRAZOLE 40 MG/VIAL ONE (06:23)
[2021-09-16 06:27] LABS: BACTERIA,URINE Few /HPF (None Seen); SQUAMOUS EPITHELIAL CELL,UR Rare /HPF (0-2); YEAST,URINE BUDDING Few /HPF (None Seen)
[2021-09-16 06:27] LABS: BASOPHILS % (AUTO) 0.3 % (0.0-5.0); EOSINOPHILS % (AUTO) 0.9 % (0.0-8.0); HEMATOCRIT 39.9 % (36-48); LYMPHOCYTES % (AUTO) 19.4 % (21.0-51.0); MEAN CORPUSCULAR HEMOGLOBIN 28.2 pg (27.0-33.0); MEAN CORPUSCULAR HGB CONC 33.1 g/dL (32.0-36.0); MEAN CORPUSCULAR VOLUME 85.3 fL (79-99); MONOCYTES % (AUTO) 6.1 % (3.0-13.0); NEUTROPHILS % (AUTO) 72.4 % (40.0-77.0); PLATELET COUNT (AUTO) 244 K/uL (130-400); RED BLOOD CELL COUNT(AUTO) 4.68 MIL/uL (4.00-5.50); RED CELL DISTRIBUTION WIDTH 12.3 % (11.0-15.5)
[2021-09-16] MEDS: LACTATED RINGERS 1000ML 1,000 ML IV SCH ×3 (06:30→07:16)
[2021-09-16] MEDS: PANTOPRAZOLE 40 MG/VIAL IVP SCH ×3 (06:30→07:16)
[2021-09-16 06:50] LABS: ALBUMIN 3.3 g/dL (3.5-5.0); BILIRUBIN,TOTAL 0.3 mg/dL (0.2-1.0); CREATININE 0.6 mg/dL (0.5-1.5); POTASSIUM 3.9 mmol/L (3.5-5.1); TOTAL PROTEIN, SERUM 7.3 g/dL (6.0-8.3)
[2021-09-16] MEDS ORDERED: IOHEXOL 350 MG/ML 100ML INFUS..BTL IV ONE (07:18)
[2021-09-16 10:26] VITALS: BP 135/74
== END 2021-09-16 10:28 | disposition home or self-care (01) ==
LOC: EDH 05:51
DX: R10.32 Left lower quadrant pain (principal); E11.9 Type 2 diabetes mellitus without complications; Z79.4 Long term (current) use of insulin; Z79.52 Long term (current) use of systemic steroids
CPT/HCPCS: 36415; 74177; 80053; 80305; 81025; 81001; 83690; 84484; 85025; 96374; 99285; C9113; J7120; Q9967

== ENCOUNTER 2022-03-12 20:01 | Emergency (ER) | payer OTHER ==
[~2022-03-12] VITALS: Ht 160 cm; Wt 125.6 kg
[2022-03-12 20:27] LABS: APPEARANCE,URINE SL CLOUDY (CLEAR); BILIRUBIN,URINE NEGATIVE (NEGATIVE); COLOR,URINE YELLOW (YELLOW); GLUCOSE, URINE (UA) 250 mg/dL (NEGATIVE); KETONES,URINE NEGATIVE (NEGATIVE); LEUKOCYTE ESTERASE ,URINE TRACE (NEGATIVE); NITRATE,URINE NEGATIVE (NEGATIVE); OCCULT BLOOD,URINE TRACE-INTACT (NEGATIVE); PROTEIN,URINE NEGATIVE (NEGATIVE); UROBILINOGEN,URINE 0.2 mg/dL (0.2-1.0)
[2022-03-12 20:29] LABS: HCG,QUALITATIVE URINE NEGATIVE (NEGATIVE)
[2022-03-12] MEDS ORDERED: ONDANSETRON 4MG INJ IVP ONE (20:30)
[2022-03-12] MEDS ORDERED: 0.9%NACL 1000ML 1,000 ML IV ONE ×2 (20:30→20:32)
[2022-03-12] MEDS ORDERED: MORPHINE 4 MG SYG IVP ONE (20:30)
[2022-03-12] MEDS ORDERED: ONDANSETRON 4MG INJ ONE (20:31)
[2022-03-12 20:32] LABS: BASOPHILS % (AUTO) 0.4 % (0.0-5.0); EOSINOPHILS % (AUTO) 1.1 % (0.0-8.0); HEMATOCRIT 40.4 % (36-48); LYMPHOCYTES % (AUTO) 23.1 % (21.0-51.0); MEAN CORPUSCULAR HEMOGLOBIN 28.8 pg (27.0-33.0); MEAN CORPUSCULAR HGB CONC 34.9 g/dL (32.0-36.0); MEAN CORPUSCULAR VOLUME 82.4 fL (79-99); MONOCYTES % (AUTO) 6.7 % (3.0-13.0); NEUTROPHILS % (AUTO) 68.1 % (40.0-77.0); PLATELET COUNT (AUTO) 223 K/uL (130-400); RED CELL DISTRIBUTION WIDTH 12.7 % (11.0-15.5); WHITE BLOOD COUNT (AUTO) 8.1 K/uL (4.8-10.8)
[2022-03-12] MEDS ORDERED: MORPHINE 4 MG SYG ONE (20:32)
[2022-03-12 20:37] LABS: BACTERIA,URINE Rare /HPF (None Seen); MUCUS,URINE Few LPF (None Seen); SQUAMOUS EPITHELIAL CELL,UR Many /HPF (0-2); YEAST,URINE BUDDING Moderate /HPF (None Seen)
[2022-03-12 20:48] LABS: ALBUMIN 3.1 g/dL (3.5-5.0); CREATININE 0.6 mg/dL (0.5-1.5); POTASSIUM 5.3 mmol/L (3.5-5.1); TOTAL PROTEIN, SERUM 7.2 g/dL (6.0-8.3)
[2022-03-12] MEDS ORDERED: NAPR500T6 PO (21:58)
[2022-03-12] MEDS ORDERED: METR-172 PO (21:58)
[2022-03-12] MEDS ORDERED: AZITHROMYCIN 250 MG TABLET PO ONE (22:00)
[2022-03-12] MEDS ORDERED: FLUCONAZOLE 100 MG TAB PO ONE (22:00)
[2022-03-12] MEDS ORDERED: CEFTRIAXONE 1G VIAL IM ONE (22:00)
[2022-03-12 22:26] VITALS: BP 129/62
== END 2022-03-12 22:26 | disposition home or self-care (01) ==
LOC: EDH 20:01
DX: B37.3 Candidiasis of vulva and vagina (principal); B96.89 Other specified bacterial agents as the cause of diseases classified elsewhere; E11.9 Type 2 diabetes mellitus without complications; Z79.1 Long term (current) use of non-steroidal anti-inflammatories (NSAID); Z79.52 Long term (current) use of systemic steroids; Z90.49 Acquired absence of other specified parts of digestive tract
CPT/HCPCS: 99285; 74176; 96374; 96375; 80053; 83690; 85025; 87210; 87797; 87486; 81001; 81025; 36415; 96372; J7030; J0696; J2405; J2270

== ENCOUNTER 2022-09-17 20:34 | Emergency (ER) | payer OTHER ==
[~2022-09-17] VITALS: Ht 160 cm; Wt 130.6 kg
[~2022-09-17 20:34] MED LIST changes: +METR-172 PO; +NAPR500T6 PO
[2022-09-17 23:13] LABS: APPEARANCE,URINE CLEAR (CLEAR); BILIRUBIN,URINE NEGATIVE (NEGATIVE); COLOR,URINE LIGHT-YELLOW (YELLOW); GLUCOSE, URINE (UA) >=1000 mg/dL (NEGATIVE); KETONES,URINE NEGATIVE (NEGATIVE); LEUKOCYTE ESTERASE ,URINE NEGATIVE Leu/uL (NEGATIVE); NITRATE,URINE NEGATIVE (NEGATIVE); PH,URINE 6.5 (5.0-8.0); PROTEIN,URINE NEGATIVE (NEGATIVE); UROBILINOGEN,URINE 0.2 mg/dL (0.2-1.0)
[2022-09-17 23:28] LABS: BACTERIA,URINE Few /HPF (None Seen); SQUAMOUS EPITHELIAL CELL,UR Few /HPF (0-2); YEAST,URINE BUDDING Few /HPF (None Seen)
[2022-09-17 23:29] LABS: BASOPHILS % (AUTO) 0.4 % (0.0-5.0); EOSINOPHILS % (AUTO) 1.6 % (0.0-8.0); HEMATOCRIT 41.7 % (36-48); LYMPHOCYTES % (AUTO) 35.1 % (21.0-51.0); MEAN CORPUSCULAR HEMOGLOBIN 27.8 pg (27.0-33.0); MEAN CORPUSCULAR HGB CONC 33.3 g/dL (32.0-36.0); MEAN CORPUSCULAR VOLUME 83.4 fL (79-99); MONOCYTES % (AUTO) 7.4 % (3.0-13.0); NEUTROPHILS % (AUTO) 55.1 % (40.0-77.0); PLATELET COUNT (AUTO) 191 K/uL (130-400); RED CELL DISTRIBUTION WIDTH 13.9 % (11.0-15.5); WHITE BLOOD COUNT (AUTO) 7.6 K/uL (4.8-10.8)
[2022-09-17 23:31] LABS: HCG,QUALITATIVE URINE NEGATIVE (NEGATIVE)
[2022-09-17 23:43] LABS: CREATININE 0.7 mg/dL (0.5-1.5); POTASSIUM 4.2 mmol/L (3.5-5.1)
[2022-09-17 23:46] LABS: TOTAL PROTEIN, SERUM 6.6 g/dL (6.0-8.3)
[2022-09-18] MEDS ORDERED: 0.9%NACL 1000ML 500 ML IV ONE
[2022-09-18] MEDS ORDERED: INSULIN HUMULIN R 100 UNIT/ML 3ML IV ONE
[2022-09-18 01:26] VITALS: BP 126/62
== END 2022-09-18 01:49 | disposition home or self-care (01) ==
LOC: EDH 20:34
DX: E11.65 Type 2 diabetes mellitus with hyperglycemia (principal); M54.6 Pain in thoracic spine; Z90.49 Acquired absence of other specified parts of digestive tract; Z79.52 Long term (current) use of systemic steroids; Z79.1 Long term (current) use of non-steroidal anti-inflammatories (NSAID)
CPT/HCPCS: 99285; 71045; 84484; 80053; 83880; 85025; 82948; 82010; 81001; 81025; 36415 ×2; 93005; J1815; J7030

== ENCOUNTER 2023-06-26 11:53 | Emergency (ER) | payer OTHER ==
[~2023-06-26] VITALS: Ht 160 cm; Wt 115.7 kg
[2023-06-26 11:58] VITALS: BP 119/64; PULSE 108; RESP 18
[2023-06-26 12:15] LABS: BASOPHILS # (AUTO) 0.01 K/uL (0.00-0.20); BASOPHILS % (AUTO) 0.1 % (0.0-5.0); EOSINOPHILS # (AUTO) 0.04 K/uL (0.00-0.70); EOSINOPHILS % (AUTO) 0.5 % (0.0-8.0); HEMATOCRIT 40.7 % (36-48); IMMATURE GRANULOCYTE ABSOLUTE 0.06 K/uL (0-1); LYMPHOCYTES # (AUTO) 1.3 K/uL (1.0-4.8); LYMPHOCYTES % (AUTO) 15.5 % (21.0-51.0); MEAN CORPUSCULAR HEMOGLOBIN 24.8 pg (27.0-33.0); MEAN CORPUSCULAR HGB CONC 31.4 g/dL (32.0-36.0); MEAN CORPUSCULAR VOLUME 78.9 fL (79-99); MONOCYTES # (AUTO) 0.7 K/uL (0.1-1.0); MONOCYTES % (AUTO) 8.1 % (3.0-13.0); NEUTROPHILS # (AUTO) 6.3 K/uL (1.8-7.7); NEUTROPHILS % (AUTO) 75.1 % (40.0-77.0); PLATELET COUNT (AUTO) 274 K/uL (130-400); RED BLOOD CELL COUNT(AUTO) 5.16 MIL/uL (4.00-5.50); RED CELL DISTRIBUTION WIDTH 14.3 % (11.0-15.5); WHITE BLOOD COUNT (AUTO) 8.4 K/uL (4.8-10.8)
[2023-06-26 12:22] LABS: APPEARANCE,URINE CLEAR (CLEAR); BILIRUBIN,URINE NEGATIVE (NEGATIVE); COLOR,URINE YELLOW (YELLOW); GLUCOSE, URINE (UA) >=1000 mg/dL (NEGATIVE); KETONES,URINE 20 mg/dL (NEGATIVE); LEUKOCYTE ESTERASE ,URINE NEGATIVE Leu/uL (NEGATIVE); NITRATE,URINE NEGATIVE (NEGATIVE); OCCULT BLOOD,URINE SMALL (NEGATIVE); PH,URINE 6.5 (5.0-8.0); PROTEIN,URINE 20 mg/dL (NEGATIVE); UROBILINOGEN,URINE >=8.0 mg/dL (0.2-1.0)
[2023-06-26 12:23] LABS: ADD UA MICROSCOPIC YES
[2023-06-26 12:29] LABS: CREATININE 0.7 mg/dL (0.5-1.5); POTASSIUM 3.6 mmol/L (3.5-5.1)
[2023-06-26 12:30] LABS: BACTERIA,URINE MANY /HPF (None Seen); MUCUS,URINE RARE LPF (None Seen); SQUAMOUS EPITHELIAL CELL,UR MANY /HPF (0-2)
[2023-06-26 12:33] LABS: BILIRUBIN,TOTAL 0.3 mg/dL (0.2-1.0); TOTAL PROTEIN, SERUM 7.6 g/dL (6.0-8.3)
[2023-06-26 12:38] LABS: HCG,QUALITATIVE URINE NEGATIVE (NEGATIVE)
[2023-06-26] MEDS ORDERED: IOHEXOL-350 75 ML VIAL IV ONE (13:27)
[2023-06-26] MEDS ORDERED: 0.9%NACL 1000ML 1,000 ML IV ONE (13:30)
[2023-06-26] MEDS ORDERED: POLY17PO4 PO (15:09)
[2023-06-26] MEDS ORDERED: FAMO20TA8 PO (15:09)
== END 2023-06-26 15:33 | disposition home or self-care (01) ==
LOC: EDH 11:53
DX: K59.00 Constipation, unspecified (principal); R79.89 Other specified abnormal findings of blood chemistry; R10.84 Generalized abdominal pain; E11.9 Type 2 diabetes mellitus without complications; Z90.49 Acquired absence of other specified parts of digestive tract
CPT/HCPCS: 99285; 74177; 96360; 96361; 84484; 80053; 83690; 85025; 87088; 81001; 81025; 36415; 93005; J7030; Q9967

== ENCOUNTER → 2023-08-30 | Outpatient (CLI) | payer OTHER ==
[~2023-08-30] MED LIST changes: +FAMO20TA8 PO; +POLY17PO4 PO
[2023-08-30 10:49] LABS: BASOPHILS # (AUTO) 0.04 K/uL (0.00-0.20); BASOPHILS % (AUTO) 0.4 % (0.0-5.0); EOSINOPHILS # (AUTO) 0.07 K/uL (0.00-0.70); EOSINOPHILS % (AUTO) 0.7 % (0.0-8.0); HEMATOCRIT 38.9 % (36-48); IMMATURE GRANULOCYTE ABSOLUTE 0.04 K/uL (0-1); LYMPHOCYTES # (AUTO) 2.5 K/uL (1.0-4.8); LYMPHOCYTES % (AUTO) 23.4 % (21.0-51.0); MEAN CORPUSCULAR HEMOGLOBIN 23.2 pg (27.0-33.0); MEAN CORPUSCULAR HGB CONC 30.6 g/dL (32.0-36.0); MEAN CORPUSCULAR VOLUME 75.8 fL (79-99); MONOCYTES # (AUTO) 0.6 K/uL (0.1-1.0); MONOCYTES % (AUTO) 5.4 % (3.0-13.0); NEUTROPHILS # (AUTO) 7.4 K/uL (1.8-7.7); NEUTROPHILS % (AUTO) 69.7 % (40.0-77.0); PLATELET COUNT (AUTO) 327 K/uL (130-400); RED BLOOD CELL COUNT(AUTO) 5.13 MIL/uL (4.00-5.50); RED CELL DISTRIBUTION WIDTH 15.3 % (11.0-15.5); WHITE BLOOD COUNT (AUTO) 10.6 K/uL (4.8-10.8)
[2023-08-30 11:05] LABS: ALBUMIN 3.2 g/dL (3.5-5.0); BILIRUBIN,TOTAL 0.2 mg/dL (0.2-1.0); CREATININE 0.8 mg/dL (0.5-1.5); TOTAL PROTEIN, SERUM 7.6 g/dL (6.0-8.3)
[2023-08-30 11:19] LABS: HIV 1&2 ANTIBODY Non-Reactive (Negative)
[2023-08-30 11:20] LABS: HIV-1 p24 Antigen Non-Reactive (Negative)
[2023-08-31 03:01] LABS: HEPATITIS B SURFACE ANTIGEN Non-Reactive (Nonreactive)
[2023-08-31 04:30] LABS: HEPATITIS B SURFACE ANTIBODY Negative (Reactive); HEPATITIS C ANTIBODY Non-Reactive (Nonreactive)
== END | disposition home or self-care (01) ==
LOC: LAB 10:13
PROVIDERS: ATTEND Nurse Practitioner Family
DX: L40.9 Psoriasis, unspecified (principal); Z79.899 Other long term (current) drug therapy
CPT/HCPCS: 36415; 80053; 80061; 85025; 86701; 86706; 86707; 86803; 87340; 87390

== ENCOUNTER 2023-09-21 00:41 | Emergency (ER) | payer OTHER ==
[~2023-09-21] VITALS: Ht 160 cm; Wt 118.8 kg
[2023-09-21] MEDS: ORPHENADRINE CITRATE 30 MG/ML ML IM ONE (03:20)
[2023-09-21] MEDS: SOLU-MEDROL 125MG VIAL IVP ONE (03:20)
[2023-09-21] MEDS: KETOROLAC 30MG VIAL (30MG/ML) IVP ONE (03:21)
[2023-09-21] MEDS ORDERED: IBUP-1493 PO (03:36)
[2023-09-21] MEDS ORDERED: METH-662 PO (03:36)
[2023-09-21 03:48] VITALS: BP 126/69; PULSE 83; RESP 18; O2SAT 98
== END 2023-09-21 03:49 | disposition home or self-care (01) ==
LOC: EDH 00:41
DX: S13.9XXA Sprain of joints and ligaments of unspecified parts of neck, initial encounter (principal); E11.9 Type 2 diabetes mellitus without complications; Z98.51 Tubal ligation status; X58.XXXA Exposure to other specified factors, initial encounter; Y93.89 Activity, other specified; Y92.89 Other specified places as the place of occurrence of the external cause; Y99.8 Other external cause status
CPT/HCPCS: 99284; 96374; 96375; 72040; 73030; 96372; J2930; J1885; J2360

== ENCOUNTER 2023-10-30 22:20 | Observation (INO) | payer OTHER ==
[~2023-10-30] VITALS: Ht 160 cm; Wt 123.1 kg
[~2023-10-30 22:20] MED LIST changes: +IBUP-1493 PO; +METH-662 PO
[2023-10-30] MEDS: ONDANSETRON 4MG INJ IVP ONE (22:46)
[2023-10-30] MEDS: 0.9%NACL 1000ML 1,000 ML IV STA (22:46)
[2023-10-30] MEDS: ACETAMINOPHEN 500 MG TABLET PO ONE (22:47)
[2023-10-30 22:53] LABS: BASOPHILS # (AUTO) 0.01 K/uL (0.00-0.20); BASOPHILS % (AUTO) 0.1 % (0.0-5.0); EOSINOPHILS # (AUTO) 0.06 K/uL (0.00-0.70); EOSINOPHILS % (AUTO) 0.8 % (0.0-8.0); HEMATOCRIT 33.3 % (36-48); IMMATURE GRANULOCYTE ABSOLUTE 0.06 K/uL (0-1); LYMPHOCYTES # (AUTO) 1.1 K/uL (1.0-4.8); LYMPHOCYTES % (AUTO) 14.2 % (21.0-51.0); MEAN CORPUSCULAR HEMOGLOBIN 23.2 pg (27.0-33.0); MEAN CORPUSCULAR HGB CONC 31.5 g/dL (32.0-36.0); MEAN CORPUSCULAR VOLUME 73.7 fL (79-99); MONOCYTES # (AUTO) 0.7 K/uL (0.1-1.0); MONOCYTES % (AUTO) 9.4 % (3.0-13.0); NEUTROPHILS # (AUTO) 5.7 K/uL (1.8-7.7); NEUTROPHILS % (AUTO) 74.7 % (40.0-77.0); PLATELET COUNT (AUTO) 231 K/uL (130-400); RED BLOOD CELL COUNT(AUTO) 4.52 MIL/uL (4.00-5.50); RED CELL DISTRIBUTION WIDTH 15.7 % (11.0-15.5); WHITE BLOOD COUNT (AUTO) 7.7 K/uL (4.8-10.8)
[2023-10-30 23:00] LABS: RAPID GROUP A STREP negative (NEGATIVE)
[2023-10-30 23:02] LABS: CREATININE 0.8 mg/dL (0.5-1.0); POTASSIUM 3.7 mmol/L (3.5-5.1)
[2023-10-30 23:06] LABS: ALBUMIN 2.6 g/dL (3.5-5.0); BILIRUBIN,TOTAL 0.2 mg/dL (0.2-1.0); TOTAL PROTEIN, SERUM 6.9 g/dL (6.0-8.3)
[2023-10-30 23:07] LABS: SARS-CoV-2, RNA, NAAT NEGATIVE SARS CoV-2 (NEGATIVE)
[2023-10-30 23:09] LABS: INFLUENZA TYPE A Negative For Type A (NEGATIVE); INFLUENZA TYPE B Negative For Type B (NEGATIVE)
[2023-10-30] MEDS: BENZONATATE 100 MG CAPSULE PO ONE ×2 (23:29→23:30)
[2023-10-31 00:39] LABS: APPEARANCE,URINE CLEAR (CLEAR); BILIRUBIN,URINE NEGATIVE (NEGATIVE); COLOR,URINE LIGHT-YELLOW (YELLOW); GLUCOSE, URINE (UA) >=1000 mg/dL (NEGATIVE); KETONES,URINE NEGATIVE (NEGATIVE); LEUKOCYTE ESTERASE ,URINE NEGATIVE Leu/uL (NEGATIVE); NITRATE,URINE NEGATIVE (NEGATIVE); OCCULT BLOOD,URINE NEGATIVE (NEGATIVE); PH,URINE 5.5 (5.0-8.0); PROTEIN,URINE NEGATIVE (NEGATIVE); UROBILINOGEN,URINE 0.2 mg/dL (0.2-1.0)
[2023-10-31 00:40] LABS: ADD UA MICROSCOPIC YES
[2023-10-31 00:41] LABS: BACTERIA,URINE FEW /HPF (None Seen); SQUAMOUS EPITHELIAL CELL,UR MOD /HPF (0-2)
[2023-10-31] MEDS ORDERED: ACETAMINOPHEN 325 MG TAB PO PRN (04:00)
[2023-10-31] MEDS ORDERED: DEXTROSE 50%-WATER 50 ML DISP.SYRIN IV PRN (04:00)
[2023-10-31] MEDS ORDERED: GLUCAGON 1MG KIT 1 MG ML IM PRN (04:00)
[2023-10-31] MEDS ORDERED: POTASSIUM CHLORIDE 10% ELIXIR 20 MEQ/15 ML UDCUP PO PRN (04:00)
[2023-10-31] MEDS ORDERED: POTASSIUM CHLORIDE 20MEQ/100ML 100 ML IV PRN (04:00)
[2023-10-31] MEDS ORDERED: KCL 20 MEQ ERTAB PO PRN (04:00)
[2023-10-31] MEDS: 0.9%NACL 1000ML 1,000 ML IV SCH (04:05)
[2023-10-31 04:13] LABS: BASOPHILS # (AUTO) 0.03 K/uL (0.00-0.20); BASOPHILS % (AUTO) 0.5 % (0.0-5.0); EOSINOPHILS # (AUTO) 0.06 K/uL (0.00-0.70); EOSINOPHILS % (AUTO) 0.9 % (0.0-8.0); HEMATOCRIT 31.5 % (36-48); IMMATURE GRANULOCYTE ABSOLUTE 0.07 K/uL (0-1); LYMPHOCYTES # (AUTO) 1.4 K/uL (1.0-4.8); LYMPHOCYTES % (AUTO) 20.7 % (21.0-51.0); MEAN CORPUSCULAR HEMOGLOBIN 22.9 pg (27.0-33.0); MEAN CORPUSCULAR HGB CONC 30.8 g/dL (32.0-36.0); MEAN CORPUSCULAR VOLUME 74.5 fL (79-99); MONOCYTES # (AUTO) 0.8 K/uL (0.1-1.0); MONOCYTES % (AUTO) 12.7 % (3.0-13.0); NEUTROPHILS # (AUTO) 4.2 K/uL (1.8-7.7); NEUTROPHILS % (AUTO) 64.1 % (40.0-77.0); PLATELET COUNT (AUTO) 224 K/uL (130-400); RED BLOOD CELL COUNT(AUTO) 4.23 MIL/uL (4.00-5.50); RED CELL DISTRIBUTION WIDTH 15.7 % (11.0-15.5); WHITE BLOOD COUNT (AUTO) 6.5 K/uL (4.8-10.8)
[2023-10-31] MEDS: CEFTRIAXONE 1G VIAL 1 GM in 0.9%NACL 50ML 50 ML IV SCH (04:14)
[2023-10-31 04:29] LABS: HEMOGLOBIN A1C 8.2 % (4.0-6.0)
[2023-10-31 04:31] LABS: % IRON SATURATION 6.2 % (22-44)
[2023-10-31] MEDS: CEFTRIAXONE 1G VIAL ONE (04:38)
[2023-10-31 04:45] LABS: ALBUMIN 2.3 g/dL (3.5-5.0); BILIRUBIN,TOTAL 0.1 mg/dL (0.2-1.0); CREATININE 0.7 mg/dL (0.5-1.0); MAGNESIUM 1.7 mg/dL (1.80-2.40); POTASSIUM 3.9 mmol/L (3.5-5.1); THYROID STIMULATING HORMONE 2.49 uIU/mL (0.36-3.74); TOTAL PROTEIN, SERUM 6.3 g/dL (6.0-8.3)
[2023-10-31 04:54] VITALS: BP 129/73; PULSE 120; RESP 18; O2SAT 94
[2023-10-31] MEDS: INSULIN HUMULIN R 100 UNIT/ML 3ML SQ SCH (06:05)
[2023-10-31] MEDS: MAGNESIUM 2GM PREMIX 50ML 50 ML IV PRN (06:17)
[2023-10-31] MEDS ORDERED: EMPA1TAB7 PO (06:41)
[2023-10-31] MEDS ORDERED: PREG150C47 PO (06:41)
[2023-10-31] MEDS ORDERED: ONDA-105 PO (06:41)
[2023-10-31] MEDS ORDERED: OMEP40CA21 PO (06:41)
[2023-10-31] MEDS ORDERED: PIOG30TA70 PO (06:41)
[2023-10-31] MEDS ORDERED: FLUC200T12 PO (06:41)
[2023-10-31] MEDS ORDERED: BUPR-49 PO (06:41)
[2023-10-31] MEDS ORDERED: PHEN37.596 PO (06:41)
[2023-10-31] MEDS ORDERED: ERGO500093 PO (06:41)
[2023-10-31] MEDS ORDERED: GUSE100S SQ (06:41)
[2023-10-31] MEDS ORDERED: FURO20TA4 PO (06:41)
[2023-10-31 08:00] VITALS: BP 124/68; PULSE 125; RESP 17; O2SAT 96
[2023-10-31] MEDS: FAMOTIDINE 20MG TAB PO SCH (08:21)
[2023-10-31] MEDS: ACETAMINOPHEN 325 MG TAB PO PRN (08:23)
[2023-10-31 12:00] VITALS: BP 130/72; PULSE 105; RESP 17
[2023-10-31] MEDS: PSEUDOEPHEDRINE HCL 30 MG TAB PO PRN (16:26)
[2023-10-31] MEDS: IBUPROFEN 600 MG TABLET PO PRN (16:27)
[2023-10-31 16:44] VITALS: BP 128/71; PULSE 83; RESP 19
[2023-10-31 20:00] VITALS: BP 98/61; PULSE 104; RESP 20; O2SAT 96
[2023-10-31] MEDS: OSELTAMIVIR PHOSPHATE 75 MG CAP PO SCH (20:04)
[2023-11-01] VITALS (8 sets, daily range): BP systolic 111–134; BP diastolic 54–71; PULSE 90–121; RESP 18; TEMP 100.2; O2SAT 96
[2023-11-01] MEDS: CEFTRIAXONE 1G VIAL IVPB SCH (04:15)
[2023-11-02] VITALS (7 sets, daily range): BP systolic 126–145; BP diastolic 70–77; PULSE 92–103; RESP 16–20; O2SAT 94–95
[2023-11-02 06:29] LABS: BASOPHILS # (AUTO) 0.01 K/uL (0.00-0.20); BASOPHILS % (AUTO) 0.2 % (0.0-5.0); EOSINOPHILS # (AUTO) 0.11 K/uL (0.00-0.70); EOSINOPHILS % (AUTO) 2.7 % (0.0-8.0); HEMATOCRIT 31.6 % (36-48); IMMATURE GRANULOCYTE ABSOLUTE 0.02 K/uL (0-1); LYMPHOCYTES # (AUTO) 1.6 K/uL (1.0-4.8); LYMPHOCYTES % (AUTO) 38.7 % (21.0-51.0); MEAN CORPUSCULAR HEMOGLOBIN 23.1 pg (27.0-33.0); MEAN CORPUSCULAR HGB CONC 30.4 g/dL (32.0-36.0); MEAN CORPUSCULAR VOLUME 76.1 fL (79-99); MONOCYTES # (AUTO) 0.6 K/uL (0.1-1.0); MONOCYTES % (AUTO) 14.5 % (3.0-13.0); NEUTROPHILS # (AUTO) 1.8 K/uL (1.8-7.7); NEUTROPHILS % (AUTO) 43.4 % (40.0-77.0); PLATELET COUNT (AUTO) 192 K/uL (130-400); RED BLOOD CELL COUNT(AUTO) 4.15 MIL/uL (4.00-5.50); RED CELL DISTRIBUTION WIDTH 15.5 % (11.0-15.5); WHITE BLOOD COUNT (AUTO) 4.1 K/uL (4.8-10.8)
[2023-11-02 07:01] LABS: ALBUMIN 2.1 g/dL (3.5-5.0); BILIRUBIN,TOTAL 0.1 mg/dL (0.2-1.0); CREATININE 0.4 mg/dL (0.5-1.0); POTASSIUM 3.6 mmol/L (3.5-5.1)
[2023-11-02] MEDS: GUAIFENESIN-DM 200/20 MG 10 ML PO PRN (19:36)
[2023-11-03 00:18] VITALS: BP 125/76; PULSE 96; RESP 18
[2023-11-03 03:53] VITALS: BP 128/70; PULSE 80; RESP 18
[2023-11-03 04:03] LABS: EOSINOPHILS # (AUTO) 0.13 K/uL (0.00-0.70); EOSINOPHILS % (AUTO) 3.2 % (0.0-8.0); HEMATOCRIT 30.9 % (36-48); IMMATURE GRANULOCYTE ABSOLUTE 0.02 K/uL (0-1); LYMPHOCYTES # (AUTO) 2.2 K/uL (1.0-4.8); LYMPHOCYTES % (AUTO) 53.1 % (21.0-51.0); MEAN CORPUSCULAR HGB CONC 30.1 g/dL (32.0-36.0); MEAN CORPUSCULAR VOLUME 76.5 fL (79-99); MONOCYTES # (AUTO) 0.4 K/uL (0.1-1.0); NEUTROPHILS # (AUTO) 1.4 K/uL (1.8-7.7); NEUTROPHILS % (AUTO) 33.2 % (40.0-77.0); PLATELET COUNT (AUTO) 201 K/uL (130-400); RED BLOOD CELL COUNT(AUTO) 4.04 MIL/uL (4.00-5.50); RED CELL DISTRIBUTION WIDTH 15.4 % (11.0-15.5); WHITE BLOOD COUNT (AUTO) 4.1 K/uL (4.8-10.8)
[2023-11-03 04:48] LABS: ALBUMIN 2.1 g/dL (3.5-5.0); BILIRUBIN,TOTAL 0.1 mg/dL (0.2-1.0); CREATININE 0.6 mg/dL (0.5-1.0); MAGNESIUM 1.7 mg/dL (1.80-2.40); POTASSIUM 4.1 mmol/L (3.5-5.1); TOTAL PROTEIN, SERUM 5.8 g/dL (6.0-8.3)
[2023-11-03 08:00] VITALS: BP 146/76; PULSE 82; RESP 16; O2SAT 97
[2023-11-03] MEDS ORDERED: MAGNESIUM 2GM PREMIX 50ML 50 ML IV SCH (08:00)
[2023-11-03 11:50] VITALS: BP 133/49; PULSE 89; RESP 16
[2023-11-03] MEDS ORDERED: GUAI10LI14 PO (13:19)
[2023-11-03] MEDS ORDERED: OSEL75 PO (13:19)
[2023-11-03] MEDS ORDERED: FAMO20TA8 PO (13:19)
[2023-11-03 16:00] VITALS: BP 142/66; PULSE 86; RESP 16
== END 2023-11-03 17:40 | disposition home or self-care (01) ==
LOC: EDH 22:20 → EDHIP 22:21 → UNDOADMOB 10-31 03:48 → EDHIP 10-31 04:22 → 4BH 10-31 04:22 → UNDODISOB 11-03 17:40
PROVIDERS: ADMIT Hospitalist; ATTEND Hospitalist
DX: N39.0 Urinary tract infection, site not specified (principal); Z20.822 Contact with and (suspected) exposure to COVID-19; E11.65 Type 2 diabetes mellitus with hyperglycemia; L40.9 Psoriasis, unspecified; D64.9 Anemia, unspecified; E44.0 Moderate protein-calorie malnutrition; E87.1 Hypo-osmolality and hyponatremia; E66.01 Morbid (severe) obesity due to excess calories; M19.90 Unspecified osteoarthritis, unspecified site; I10 Essential (primary) hypertension; R00.0 Tachycardia, unspecified; R39.16 Straining to void; Z68.42 Body mass index [BMI] 45.0-49.9, adult; Z90.49 Acquired absence of other specified parts of digestive tract; Z98.51 Tubal ligation status
CPT/HCPCS: 96361 ×3; 99285; 84484; 80053 ×4; 84703; 85025 ×4; 87880; 87804 ×2; 87635; 71045; 93005; 96372 ×3; 96365; 96366 ×3; 96367; 83036; 84443; 83540; 83550; 83735 ×2; 80061; 87040 ×2; 87088; 82948 ×13; 83605; 81001; 36415 ×3; 84145; 96376; G0378 ×91; J7030 ×2; J2405; J3475 ×2; J0696 ×5; J1815 ×2

== ENCOUNTER 2024-09-03 21:54 | Emergency (ER) | payer OTHER ==
[~2024-09-03] VITALS: Ht 160 cm; Wt 131.5 kg
[~2024-09-03 21:54] MED LIST changes: +BUPR-49 PO; +EMPA1TAB7 PO; +ERGO500093 PO; +FLUC200T96 PO; +FURO20TA4 PO; +GUAIFDM PO; +GUSE100S SQ; -IBUP-1493 PO; -INSLAN SQ; -METH-662 PO; -METH4TAB3 PO; -METR-172 PO; -NAPR500T6 PO; +OMEP40CA21 PO; +ONDA-105 PO; +OSEL75 PO; +PIOG30TA70 PO; -POLY17PO4 PO; +PREG150C47 PO
[2024-09-03 22:28] LABS: BASOPHILS # (AUTO) 0.02 K/uL (0.00-0.20); BASOPHILS % (AUTO) 0.2 % (0.0-5.0); EOSINOPHILS # (AUTO) 0.05 K/uL (0.00-0.70); EOSINOPHILS % (AUTO) 0.5 % (0.0-8.0); HEMATOCRIT 37.6 % (36-48); IMMATURE GRANULOCYTE ABSOLUTE 0.05 K/uL (0-1); LYMPHOCYTES # (AUTO) 2.4 K/uL (1.0-4.8); LYMPHOCYTES % (AUTO) 24.3 % (21.0-51.0); MEAN CORPUSCULAR HEMOGLOBIN 24.2 pg (27.0-33.0); MEAN CORPUSCULAR HGB CONC 31.1 g/dL (32.0-36.0); MEAN CORPUSCULAR VOLUME 77.8 fL (79-99); MONOCYTES # (AUTO) 0.5 K/uL (0.1-1.0); MONOCYTES % (AUTO) 5.3 % (3.0-13.0); NEUTROPHILS # (AUTO) 6.9 K/uL (1.8-7.7); NEUTROPHILS % (AUTO) 69.2 % (40.0-77.0); PLATELET COUNT (AUTO) 235 K/uL (130-400); RED BLOOD CELL COUNT(AUTO) 4.83 MIL/uL (4.00-5.50); RED CELL DISTRIBUTION WIDTH 15.5 % (11.0-15.5)
[2024-09-03] MEDS: 0.9%NACL 1000ML 1,000 ML IV ONE (22:34)
[2024-09-03] MEDS: FAMOTIDINE 20MG VIAL IV ONE (22:34)
[2024-09-03] MEDS: ondanSETRON 4MG INJ IVP ONE (22:34)
[2024-09-03 22:49] LABS: CREATININE 0.7 mg/dL (0.5-1.0); POTASSIUM 3.9 mmol/L (3.5-5.1)
[2024-09-03 23:03] LABS: BILIRUBIN,DIRECT 0.1 mg/dL (0.0-0.3); BILIRUBIN,TOTAL 0.3 mg/dL (0.2-1.0); MAGNESIUM 1.6 mg/dL (1.80-2.40); TOTAL PROTEIN, SERUM 6.7 g/dL (6.0-8.3)
[2024-09-03 23:15] LABS: B-TYPE NATRIURETIC PEPTIDE 9 pg/mL (0-100)
[2024-09-03] MEDS ORDERED: IOHEXOL 350 MG/ML 100ML INFUS..BTL IV ONE (23:31)
--- NOTE | 2024-09-04 00:03 | HMCIMG ---
CT CHEST PE PROTOCOL WWO CONT HISTORY: Pulmonary embolism COMPARISON: None TECHNIQUE: CT angiography of the chest was performed. The study was performed using angiographic technique with maximum intensity projection reconstruction images. Patient was given 100 cc of Omnipaque through intravenous route. FINDINGS: The study is limited due to patient's large body habitus. Fatty changes of the liver are noted. Postcholecystectomy changes are seen. Elevation of right hemidiaphragm is seen. No CT evidence of filling defect is seen to suggest pulmonary embolus. No CT evidence of aortic dissection is seen. No evidence of parenchymal disease is seen. No CT evidence of pleural effusion or pericardial effusion is seen. The heart is enlarged. No evidence of adrenal mass is seen. Degenerative changes of the spine are noted. IMPRESSION: 1. No CT evidence of acute pulmonary embolus is seen. CT was performed with one or more following dose reduction techniques: automated exposure control, adjustment of the mA and kv according to patient's size, or use of a iterative reconstruction technique.
[2024-09-04] MEDS ORDERED: SULF1TAB42 PO (01:05)
--- NOTE | 2024-09-04 01:06 | ERN ---
General Chief Complaint: Abdominal Pain Stated Complaint: EPIGASTRIC PAIN WITH SOB, PAIN TO LEFT BIG TOE Time Seen by MD: 22:01 Time Seen by Midlevel: 22:01 Source: patient History of Present Illness Initial Comments Patient is a 44-year-old morbidly obese patient presenting to the emergency department with severe midepigastric abdominal pain and associated shortness for breath. She also reports centralized chest pain. All of her symptoms started after taking her 1st dose of ampicillin. She was in [place] earlier today for a right toe ingrown removal and was prescribed antibiotics to prevent infection given that she was a diabetic. She reports taking her 1st dose and shortly after started having the symptoms. Allergies: Coded Allergies: No Known Allergies (Verified Allergy, Unknown, 07/06/20) Home Meds Active Scripts Sulfamethoxazole/Trimethoprim (Bactrim Ds Tablet) 800 Mg-160 Mg Tablet, 1 TAB PO BID for 7 Days, #14 TAB 0 Refills Prov:MARY GRACE DUNN 09/04/24 Oseltamivir Phosphate (Tamiflu) 75 Mg Cap, 75 MG PO BID, #6 CAP Prov:CARLOS HILL [employer]OUNDRY [employer]ORER COREROOM 11/03/23 Guaifenesin/Dextromethorphan (Guaifenesin-Dm 200-20 mg/10 ml) 100 Mg-10 Mg/5 Ml Liquid, 10 ML PO Q4H PRN for COUGH, #30 ML Prov:CARLOS HILL FOUN[employer]ORER COREROOM 11/03/23 Famotidine (Famotidine) 20 Mg Tablet, 20 MG PO BID, #60 TAB Prov:CARLOS HILL FOUN[employer]ORER COREROOM 11/03/23 Reported Medications Empagliflozin/Metformin HCl (Synjardy 12.5-1,000 mg Tablet) 12.5 Mg-1,000 Mg Tablet, 1 EACH PO BIDMEALS, TAB 10/31/23 Pregabalin (Pregabalin) 150 Mg Capsule, 150 MG PO DAILYDINNER, CAP 10/31/23 Bupropion HCl (Bupropion Xl) 150 Mg Tab.er.24h, 150 MG PO DAILY, TAB 10/31/23 Furosemide (Furosemide) 20 Mg Tablet, 20 MG PO DAILY, TAB 10/31/23 Ergocalciferol (Vitamin D2) (Vitamin D2) 1,250 Mcg (96960 Unit) Capsule, 1250 MCG PO QWEEK, CAP 10/31/23 Omeprazole (Omeprazole) 40 Mg Capsule.dr, 40 MG PO ACBKFST, CAP 10/31/23 Ondansetron HCl (Ondansetron HCl) 8 Mg Tablet, 8 MG PO BID PRN for NAUSEA, TAB 10/31/23 Pioglitazone HCl (Pioglitazone HCl) 30 Mg Tablet, 30 MG PO DAILY, TAB 10/31/23 Fluconazole (Fluconazole) 200 Mg Tablet, 200 MG PO DAILY for 10 Days, #2 TAB 10/31/23 Guselkumab (Tremfya) 100 Mg/Ml Syringe, 100 MG SQ AD, SYRINGE 10/31/23 Past Medical History Past Medical History: Diabetes-Type II Medical History Other: PSORIASIS Past Surgical History: Surgical History Other: LEFT SHOULDER SX; TUBAL LIGATION Family History Family History: Negative Social History Social History: Negative, Lives with family Female( History) History: Not Applicable ROS Dictation CONSTITUTIONAL: Negative except for HPI HEAD/FACE: Negative except for HPI EENT: Negative except for HPI RESPIRATORY: Negative except for HPI GASTROINTESTINAL/ABDOMINAL: Negative except for HPI GENITOURINARY: Negative except for HPI MUSCULOSKELETAL: Negative except for HPI INTEGUMENTARY: Negative except for HPI NEUROLOGICAL/PSYCH: Negative except for HPI HEMATOLOGIC/LYMPHATIC: Negative except for HPI All Systems Negative, Except as noted above. 13 point review of systems assessed and all negative except for above. Physical Exam Physical Exam Dictation Vital Signs reviewed General Appearance: Alert, oriented x 3, mild distress, morbidly obese Head and Face: non-traumatic. Eyes: PERRL, pink conjunctivas, eyelid no trauma, anterior chamber with arcus senilis. Ears: Pinnas intact and no signs of trauma or erythema ear canals clear and no discharge TM no erythema Nose: No discharge, no bleeding. Oropharynx: Mouth normal, tongue pink, pharynx clear,no erythema, tonsils no exudates, no abscesses noted, mucous membrane moist Neck: Supple, non-tender, no thyromegaly, no masses, no JVD, no bruits Breast:Deferred Chest:No tenderness, no crepitus, no paradoxical movement, no retractions Lungs:Clear, well-ventilated, symmetric, no rales, no wheezing, no rhonchi, no stridor, good breath sounds bilaterally Heart: Regular rate, regular rhythm, no murmur, no gallops Vascular: no peripheral edema, Abdomen: Soft, positive bowel sounds, nondistended, no guarding, Midepigastric abdominal tenderness, no rebound, no masses no hepatomegaly, no splenomegaly, no Herrera's sign, no hernias. Rectal: Deferred Genital: Deferred Neurological: Normal speech, motor function intact, sensory function intact Musculoskeletal: Neck nontender, full range of motion, back nontender, full range of motion, Extremities: nontender, full range of motion Skin: Color pink, dry, no turgor, no rash, no lacerations, no abrasions, no contusions. Lymphatic: Deferred Results Laboratory and Microbiology Lab and Micro Result Laboratory Tests Test 09/03/24 22:19 White Blood Count 10.0 K/uL (4.8-10.8) Red Blood Count 4.83 MIL/uL (4.00-5.50) Hemoglobin 11.7 g/dL (12.0-16.0) L Hematocrit 37.6 % (36-48) Mean Corpuscular Volume 77.8 fL (79-99) L Mean Corpuscular Hemoglobin 24.2 pg (27.0-33.0) L Mean Corpuscular Hemoglobin Concent 31.1 g/dL (32.0-36.0) L Red Cell Distribution Width 15.5 % (11.0-15.5) Platelet Count 235 K/uL (130-400) Mean Platelet Volume 9.7 fL (7.5-10.5) Immature Granulocyte % (Auto) 0.5 % (0-1) Neutrophils (%) (Auto) 69.2 % (40.0-77.0) Lymphocytes (%) (Auto) 24.3 % (21.0-51.0) Monocytes (%) (Auto) 5.3 % (3.0-13.0) Eosinophils (%) (Auto) 0.5 % (0.0-8.0) Basophils (%) (Auto) 0.2 % (0.0-5.0) Neutrophils # (Auto) 6.9 K/uL (1.8-7.7) Lymphocytes # (Auto) 2.4 K/uL (1.0-4.8) Monocytes # (Auto) 0.5 K/uL (0.1-1.0) Eosinophils # (Auto) 0.05 K/uL (0.00-0.70) Basophils # (Auto) 0.02 K/uL (0.00-0.20) Absolute Immature Granulocyte (auto 0.05 K/uL (0-1) Nucleated Red Blood Cells 0.0 % (0.0-0.19) Red Blood Cell Morphology See comments Sodium Level 135 mmol/L (136-145) L Potassium Level 3.9 mmol/L (3.5-5.1) Chloride Level 100 mmol/L (101-111) L Carbon Dioxide Level 28 mmol/L (21-32) Blood Urea Nitrogen 17 mg/dL (7-18) Creatinine 0.7 mg/dL (0.5-1.0) Glomerular Filtration Rate Calc 111 mL/min (>90) Random Glucose 266 mg/dL (70-105) H Total Calcium 7.8 mg/dL (8.5-10.1) L Magnesium Level 1.60 mg/dL (1.80-2.40) L Total Bilirubin 0.3 mg/dL (0.2-1.0) Direct Bilirubin 0.1 mg/dL (0.0-0.3) Aspartate Amino Transf (AST/SGOT) 102 U/L (10-37) H Alanine Aminotransferase (ALT/SGPT) 64 U/L (12-78) Alkaline Phosphatase 127 U/L (50-136) Total Creatine Kinase 70 U/L (21-232) Troponin I High Sensitivity < 4 ng/L (4-50) L B-Type Natriuretic Peptide 9 pg/mL (0-100) Total Protein 6.7 g/dL (6.0-8.3) Albumin 3.0 g/dL (3.5-5.0) L Lipase 156 U/L (16-77) H Serum Test, Qualitative NEGATIVE (NEGATIVE) Labs Reviewed?: Yes MDM MDM: Patient is a 44-year-old morbidly obese patient presenting to the emergency department with severe midepigastric abdominal pain and associated shortness for breath. She also reports centralized chest pain. All of her symptoms started after taking her 1st dose of ampicillin. She was in [place] earlier today for a right toe ingrown removal and was prescribed antibiotics to prevent infection given that she was a diabetic. She reports taking her 1st dose and shortly after started having the symptoms. On arrival with the patient appears to be in [id number] discomfort. She reports being short of breath. She is tachycardic in the 120s during my examination with a normal blood pressure 121/74. O2 saturation is 100% on room air. Cardiac workup was initiated given her clinical presentation. Her CBC shows a normal white blood cell count. Platelets are normal. Hemoglobin stable at 11.7. Chemistries reveal a slightly elevated lipase at 156. Cardiac enzymes are negative. EKG shows normal sinus rhythm. Patient was started on IV fluids given her tachycardia. Chest x-ray was obtained which shows a right hemidiaphragm and some congestion. On repeat e xamination patient does report feeling her shortness of breath improved but is persistently tachycardic in the 120s. CT chest was obtained to rule out a PE. CT chest does not show any evidence of a pulmonary embolism. She does have some redness to her right toe consistent with cellulitis. The patient was given Rocephin in the emergency department and will be discharged home with a prescription for Bactrim. Her symptoms may be related to the medication that she took earlier today. She was advised to follow up with your primary care doctor in 2-3 days for repeat evaluation or return to the ER for any new or worsening symptoms. Differential diagnosis: On PE, electrolyte abnormality, dehydration, ACS There are no social concerns with this patient. Prescription drug management Prescriptions will include: Medical management and examination interpretation discussions were had by me with other qualified healthcare professionals as indicated for the patient's care. ED Course Orders Procedure Category Date Status Time 12 Lead Ekg Tracing- EKG 09/03/24 Logged Technical 22:01 Cbc With Differential LAB 09/03/24 Complete 22:01 Basic Metabolic Panel LAB 09/03/24 Complete 22:01 B-Type Natriuretic LAB 09/03/24 Complete Peptide 22:01 Creatine Kinase, Total LAB 09/03/24 Complete 22:01 Magnesium LAB 09/03/24 Complete 22:01 Hepatic Function Panel LAB 09/03/24 Complete 22:01 Lipase LAB 09/03/24 Complete 22:01 Testing, LAB 09/03/24 Complete Serum Hcg 22:01 Troponin I High LAB 09/03/24 Complete Sensitivity 22:01 Chest 1vw RAD 09/03/24 Taken 22:01 0.9%Nacl 1000ml (Ns PHA 09/03/24 Complete 1000ml) 22:30 Ondansetron 4mg Inj PHA 09/03/24 Complete (Zofran 4mg Inj) 22:30 Famotidine 20mg Vial PHA 09/03/24 Complete (Pepcid 20mg Vial) 22:30 Iohexol (Omnipaque) PHA 09/03/24 Complete 23:31 Ct Chest Pe Protocol CT 09/03/24 Resulted Wwo Cont 23:32 Ceftriaxone 1g Vial PHA 09/04/24 Complete (Rocephine 1g Inj) 01:00 Ketorolac PHA 09/04/24 Complete Tromethamine 15mg/Ml 01:00 Current Medications Medications (Trade) Dose Ordered Sig/Gloria Route PRN Reason Start Time Stop Time Status Last Admin Dose Admin Ceftriaxone Sodium (ROCEphine 1G INJ) 1 gm ONCE ONCE IVPB 09/04/24 01:00 09/04/24 01:01 DC Famotidine (Pepcid 20mg Vial) 20 mg ONCE ONCE IV 09/03/24 22:30 09/03/24 22:31 DC 09/03/24 22:34 Iohexol (Omnipaque) 35,000 mg STK-MED ONCE IV 09/03/24 23:31 09/03/24 23:32 DC Ketorolac Tromethamine (toRADol) 15 mg ONCE ONCE IV 09/04/24 01:00 09/04/24 01:01 DC Ondansetron HCl (zoFRAN 4MG INJ) 4 mg ONCE ONCE IVP 09/03/24 22:30 09/03/24 22:31 DC 09/03/24 22:34 Sodium Chloride 1,000 ml @ 0 mls/hr ONCE ONCE IV 09/03/24 22:30 09/03/24 22:31 DC 09/03/24 22:34 Vital Signs Date Time Temp Pulse Resp B/P (MAP) Pulse Ox O2 Delivery O2 Flow Rate FiO2 09/04/24 00:29 98.1 99 18 117/76 100 Room Air* 0 21 09/03/24 23:30 98.4 97 18 137/79 98 Room Air* 0 21 09/03/24 22:30 98.1 101 18 145/78 98 Room Air* 0 21 09/03/24 21:59 98.2 103 20 121/74 100 Room Air [address] [address] IMAGING REPORT Signed PATIENT: ANIYA JUDD MR#: [id number] : 1980 SEX: F AGE: 44 LOCATION: ED ORDER 32 STATUS: REG ER REPORT#: [id number] SERVICE 31 REASON: r/o PE ORDERING PHYSICIAN: MARY GRACE DUNN PROCEDURE: CHES PE - CT CHEST PE PROTOCOL WWO CONT CT CHEST PE PROTOCOL WWO CONT HISTORY: Pulmonary embolism COMPARISON: None TECHNIQUE: CT angiography of the chest was performed. The study was performed using angiographic technique with maximum intensity projection reconstruction images. Patient was given 100 cc of Omnipaque through intravenous route. FINDINGS: The study is limited due to patient's large body habitus. Fatty changes of the liver are noted. Postcholecystectomy changes are seen. Elevation of right hemidiaphragm is seen. No CT evidence of filling defect is seen to suggest pulmonary embolus. No CT evidence of aortic dissection is seen. No evidence of parenchymal disease is seen. No CT evidence of pleural effusion or pericardial effusion is seen. The heart is enlarged. No evidence of adrenal mass is seen. Degenerative changes of the spine are noted. IMPRESSION: 1. No CT evidence of acute pulmonary embolus is seen. CT was performed with one or more following dose reduction techniques: automated exposure control, adjustment of the mA and kv according to patient's size, or use of a iterative reconstruction technique. DICTATED BY: CASSANDRA ROBLEDO MD DATE: 09/03/24 0939 ELECTRONICALLY SIGNED BY: CASSANDRA ROBLEDO MD DATE: 09/04/24 0003 HEART Score Response (Comments) Value History: Moderate suspicion (+1) 1 EKG: Normal 0 Age: < 45yrs (0) 0 Risk Factors: 1-2 risk factors (+1) 1 Initial Troponin: Normal limit (0) 0 HEART Score Risk: Low Risk for MACE (1-3) Total 2 DX & DISP Disposition: Discharge Departure Impression: Primary Impression: Elevated lipase Additional Impression: Cellulitis of right toe Condition: Stable Scripts Sulfamethoxazole/Trimethoprim (Bactrim Ds Tablet) 800 Mg-160 Mg Tablet 1 TAB PO BID for 7 Days, #14 TAB 0 Refills Prov: MARY GRACE DUNN 09/04/24 Additional Instructions: Please stop taking ampicillin as this may have caused your symptoms today. Your blood work today showed a slightly elevated lipase. Continue to monitor symptoms over the next 24-48 hours. I have given you a prescription for Bactrim which should help prevent any infection to your right toe. Follow up with your primary care doctor in 2-3 days for repeat evaluation. Return to the ER for any new or worsening symptoms. Referrals: KENDRA ZIEGLER DO (PCP) Time of Disposition: 00:57 I have reviewed the case, and I agree with, Diagnosis and Plan I performed the substantive portion of the visit. I have reviewed and personally made and approve the management plan that is documented in the note by myself or the YAMILE. I acknowledge for responsibility for the patient's jannet gement plan. MARY GRACE DUNN Sep 04, 2024 01:06
[2024-09-04] MEDS: ketOROlac 15MG/ML VIAL (15MG/ML) IV ONE (01:15)
[2024-09-04] MEDS: cefTRIAXone 1G VIAL IVPB ONE (01:15)
[2024-09-04 01:21] VITALS: BP 115/78; PULSE 90; RESP 18; TEMP 98.3; O2SAT 100
--- NOTE | 2024-09-04 07:46 | EKG ---
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
--- NOTE | 2024-09-04 08:35 | HMCIMG ---
CHEST 1VW REASON: sob COMPARISON: 10/30/2023 FINDINGS: Single view of the chest was obtained. Lungs are clear. Heart size is normal. There is no pulmonary vascular congestion. Right hemidiaphragm remains elevated. Mediastinum and bony thorax appear unremarkable. IMPRESSION: 1. Elevated right hemidiaphragm. 2. No acute finding.
== END 2024-09-04 01:39 | disposition home or self-care (01) ==
LOC: EDH 21:54
DX: R74.8 Abnormal levels of other serum enzymes (principal); L03.031 Cellulitis of right toe; E11.9 Type 2 diabetes mellitus without complications; E66.01 Morbid (severe) obesity due to excess calories; Z79.84 Long term (current) use of oral hypoglycemic drugs; Z79.899 Other long term (current) drug therapy; Z98.51 Tubal ligation status; Z68.43 Body mass index [BMI] 50.0-59.9, adult
CPT/HCPCS: 99285; 96374; 71270; 71045; 96361; 96375 ×2; 82550; 80076; 83735; 84484; 80048; 83880; 84703; 83690; 85025; 36415; 93005; J3490; J7030; J2405; Q9967; J1885; J0696